=== PATIENT | female | born 1945 | race Caucasian/White ===

== ENCOUNTER 2020-06-10 06:56 | Day surgery (SDC) | payer OTHER ==
[~2020-06-10] VITALS: Ht 162.6 cm; Wt 99.8 kg
[~2020-06-10 06:56] MED LIST: ALBU108A5 IN; ALP15OS EACHEYE; APIX5TAB PO; ATOR80TA PO; DICL0.1S20 EACHEYE; EZET10TA22 PO; FURO1TAB33 PO; INSU100I33 SC; INSUINJ18 SC; LOSA-69 PO; METO-169 PO; POTA10TA32 PO
[2020-06-10] MEDS ORDERED: LIDOCAINE 2%HCL (LOCAL ANESTH.) INJ 20ML MDV ONE (07:37)
[2020-06-10] MEDS ORDERED: ANGIOMAX 250 MG VIAL IV ONE (07:52)
[2020-06-10] MEDS ORDERED: HEPARIN SODIUM (PORCINE) 5000 UNITS/ML 1ML VIAL ONE (07:52)
[2020-06-10] MEDS ORDERED: VERAPAMIL 2.5MG/ML INJ 2ML VIAL IV ONE (07:52)
[2020-06-10] MEDS ORDERED: SODIUM CHL 0.9% 0 ML ONE (07:53)
[2020-06-10] MEDS ORDERED: fentaNYL CITRATE 100 MCG/2 ML VL ONE (07:53)
[2020-06-10] MEDS ORDERED: MIDAZOLAM HCL 1MG/1ML-2 ML VIAL ONE (07:53)
[2020-06-10] MEDS ORDERED: ACETAMINOPHEN 500 MG TAB PO PRN (08:45)
[2020-06-10] MEDS ORDERED: ONDANSETRON HCL 4 MG/2 ML VIAL IV PRN (08:45)
== END 2020-06-10 12:00 | disposition home or self-care (01) ==
LOC: CATH 06:56
PROVIDERS: ATTEND Internal Medicine Cardiovascular Disease
DX: R94.39 Abnormal result of other cardiovascular function study (principal); I25.10 Atherosclerotic heart disease of native coronary artery without angina pectoris; I10 Essential (primary) hypertension; E78.5 Hyperlipidemia, unspecified; I73.9 Peripheral vascular disease, unspecified; J44.9 Chronic obstructive pulmonary disease, unspecified; E11.9 Type 2 diabetes mellitus without complications; Z20.822 Contact with and (suspected) exposure to COVID-19; Z98.890 Other specified postprocedural states; Z79.899 Other long term (current) drug therapy; Z88.8 Allergy status to other drugs, medicaments and biological substances
CPT/HCPCS: 93454; C1769; C1887; C1894; J1644; J2250; J3010; J7030; U0003; 99152; G0500

== ENCOUNTER → 2024-05-17 | Outpatient (CLI) | payer OTHER ==
[~2024-05-17] VITALS: Ht 162.6 cm; Wt 81.2 kg
[~2024-05-17] MED LIST changes: +APIX2.5T PO; +ATOR-47 PO; +EZET-10 PO; +FURO40TA4 PO; +GABA-339 PO; +LOSA-534 PO; -LOSA-69 PO; -METO-169 PO; +METO-289 PO; +POTA-228 PO; -POTA10TA32 PO; +REGADENOSON 0.4 MG/5 ML SYRG IV ONE
[2024-05-17] MEDS: REGADENOSON 0.4 MG/5 ML SYRG IV ONE ×2 (08:53→10:07)
--- NOTE | 2024-05-18 15:06 | DVHSR ---
APPROVED REPORT Exam: Nuclear Stress Test Indication: Tachycardia BMI: 0 Medical History Medical History: SVT, HTN, HLD, DM Stress Test Details Stress Test: Pharmacologic stress testing performed using 0.4 mg of regadenoson per 5 mL given IV ov er 10 seconds. HR Resting HR: 66 bpmMax Heart Rate (APMHR): 140.936958 bpm Max HR Achieved: 90 bpmTarget HR (85% APMHR): 119.707494 bpm % of APMHR: 64.29 Recovery HR: 70 bpm BP Resting BP: 159/99 mmHg Recovery BP: 158/73 mmHg ECG Resting ECG: Sinus Rhythm Clinical Reason for Termination: Completed protocol Nurse Comments Recieved pt. from [facility]. A/Ox4 on RA. Connected to cardiac nurse specialist, VS stable. PIV flushes well. Reviewed POC. Pt. verbalized understanding of procedure including risks and side ef fects, agrees for stress testing. Lexiscan stress test performed per protocol. Exent administered Cardiolite. Pt. tolerated well . Pt. stable, no change on exam. VS returned to baseline. Transferred to [facility] via wheelchair w/ te ch. Stress ECG Conclusion no severe stress induced ischemia noted normal lvef 64% NM EXAM: Myocardial Perfusion REST/STRESS Imaging Protocol: Rest Tc-99m/Stress Tc-99m 1 day Resting Data Rest SPECT myocardial perfusion imaging was performed in supine position 60 minutes following the int ravenous injection of 12.1 mCi of Tc-99m Sestamibi. Time of rest injection: 0845 Time of rest imagin Administration Route: IV Administration Site: Right Arm Pharmacologic Stress Pharmacologic stress test was performed by injecting Regadenoson 0.4 mg IV push followed by the intra venous injection of 34 mCi of Tc-99m Sestamibi. Time of stress injection: 1007 Time of stress imagin Administration Route: IV Administration Site: Right Arm Gated Stress SPECT was performed 60 minutes after stress injection. The images were gated to evaluate regional wall motion and calculate left ventricular ejection fracti on. Stress only was performed in the Supine position. Nuclear Conclusion Nuclear Findings: negative for ischemia no severe stress induced ischemia noted normal lvef 64%
== END | disposition home or self-care (01) ==
LOC: XYW 07:56
PROVIDERS: ATTEND Specialist
DX: I47.10 Supraventricular tachycardia, unspecified (principal); I10 Essential (primary) hypertension; N39.0 Urinary tract infection, site not specified; E11.9 Type 2 diabetes mellitus without complications; M19.90 Unspecified osteoarthritis, unspecified site
CPT/HCPCS: 93017; J2785; 78452